=== PATIENT | female | born 1955 | race Caucasian/White ===

== ENCOUNTER 2021-03-04 07:11 | Day surgery (SDC) | payer MEDICARE, SELFPAY ==
--- NOTE | 2021-03-04 07:28 | EKG12_ITS ---
Test Reason : OR Blood Pressure : / mmHG Vent. Rate : 068 BPM Atrial Rate : 068 BPM P-R Int : 168 ms QRS Dur : 090 ms QT Int : 384 ms P-R-T Axes : 029 -05 -11 degrees QTc Int : 408 ms Normal sinus rhythm Inferior infarct , age undetermined Abnormal ECG No previous ECGs available Confirmed by JEANNE MARIN, VANDANA ([id number]), supervisor type disk quality control ABISAI CELESTE ([id number]) on 03/15/2021 10:26:35 AM Referred By: Eliazar Mosley Confirmed By:VANDANA ANGEL MD
[2021-03-04 07:45] VITALS: BP 150/74; PULSE 67; RESP 18; TEMP 36.4; O2SAT 100; BMI 37.3
[2021-03-04] MEDS: Lactated Ringers 1,000 ML 100 ML IV ×2 (07:50→11:00)
[2021-03-04 08:08] LABS: Hemoglobin 10.6 g/dL (12.0-15.0); Mean Corp Hgb Conc 31.2 g/dL (32-36); Mean Corpuscular Hgb 27.2 pg (27.0-32.0); Mean Corpuscular Volume 87.2 fL (81-99); Mean Platelet Vol. 10.7 fl (6.2-12.0); Platelet Count 359 K/mm3 (150-450); RBC Distribution Width CV 13.7 % (11.6-14.6); RBC Distribution Width SD 43.2 fl (35.1-43.9); White Blood Count 8.8 K/mm3 (4.4-11.0)
[2021-03-04 08:28] LABS: Anion Gap 7 (5-15); BUN 39 mg/dL (7-18); BUN/Creat Ratio 30.2 RATIO (10-20); Calcium,Total 9.5 mg/dL (8.5-10.1); Chloride 110 mmol/L (98-107); Creatinine, Serum 1.29 mg/dL (0.55-1.02); EST Glomerular Filtration Rate 44 mL/min (>60); Est Glom Filt Rate - Afr Amer 54 mL/min (>60); Estimated Creatinine Clearance 59.05 ml/min; Glucose 97 mg/dL (74-106); Potassium 4.4 mmol/L (3.5-5.1); Sodium Level 140 mmol/L (136-145)
[2021-03-04 08:29] LABS: International Normalized Ratio 1.1; Prothrombin Time (Protime)PT. 13.4 SECONDS (11.7-14.9)
[2021-03-04 08:30] LABS: Partial Thromboplast Time 32.9 Seconds (24.1-36.2)
[2021-03-04] MEDS: Lidocaine 1% /Epi 1:100 (20ml) 20 ML Vial (08:50)
--- NOTE | 2021-03-04 08:50 | NASAL_PTH ---
PATIENT: MILLER DUTTON LOC: [facility] [place] U#:[id number] AGE/SX: 65/F ROOM: RE03/04/[address]: Dr. Eliazar Mosley MD : 1955 BED: DIS: 03/04/2021 SPEC #: [id number] RECD: 03/04/21 13:56 STATUS: BEHZAD [place] #: [id number] NADIR: 03/04/21 08:[address]: Eliazar Mosley DEPT: SURGICAL PATHOLOGY RECD BY: Etelvina Pete ENTERED: 03/07/21 09:03 SP TYPE: NASAL SPEC OTHR DR: Abi Primary Care Phys Tissues: A - Ethmoid sinus, NOS B - Ethmoid sinus, NOS Procedures: Decalcification bone/plaque Surgery Specimen Level III HEADER OPERATION: Septoplasty, bilateral endoscopic maxillary antrostomies PRE-OP DIAGNOSIS: Chronic maxillary sinusitis, chronic ethmoidal sinusitis, deviated nasal septum TISSUE SUBMITTED: A ? Left sinus contents, B ? Right sinus contents MICROSCOPIC DIAGNOSIS A. Left sinus contents, curettings: Consistent with chronic sinusitis. Fragments of bone with no pathologic change. B. Right sinus contents, curettings: Consistent with chronic sinusitis. Fragments of bone with no pathologic change. AM:ness 03/10/2021 MICROSCOPIC DESCRIPTION Slides are reviewed. GROSS DESCRIPTION A - Received in fixative is one container labeled with the patient's name and designated left sinus contents. The specimen consists of multiple irregular fragments of basilio soft tissue that in aggregate measure 6 x 5 x 0.8 cm. Net Developer Software Engineer C portions are submitted in two cassettes after decalcification. B - Received in fixative is one container labeled with the patient's name and designated right sinus contents. The specimen consists of multiple gritty fragments of basilio soft tissue that in aggregate measure 6 x 6 x 1 cm. Net Developer Software Engineer C portions are submitted in two cassettes. Cassette 1 is submitted after decalcification. / AM:ness 03/07/21 TC:3 CPT: 31475 x2, 20394 x2
[2021-03-04] MEDS: Lidocaine 4% 50 ML Bottle (09:45)
[2021-03-04] MEDS: Oxymetazoline 0.05% 1 SPRAY SPRAY.BTL 15 SPRAY (09:45)
--- NOTE | 2021-03-04 11:12 | PCM.OPRPT ---
Problems Associated Problem List Diagnoses (1) Deviated nasal septum: (2) Chronic maxillary sinusitis: (3) Chronic ethmoidal sinusitis: Report of Operation Date of Procedure: 03/04/21 Pre-Operative Diagnosis: Deviated nasal septum, chronic maxillary and ethmoid sinusitis Post-Operative Diagnosis: Same Surgery/Procedure Performed:: Septoplasty, bilateral endoscopic maxillary antrostomies, total ethmoidectomies Description of Surgical Findings:: Kaila is a 65-year-old female with chronic postnasal drainage, nasal congestion, and exam showing marked nasal septal deviation and CT scan with chronic sinusitis. She had failed appropriate courses of medical therapy to have any significant improvement in the above procedures offered hopes of alleviation of these complaints. She was eager to proceed. The risks, alternatives, potential complications, and benefits were discussed at length and any questions answered to the patient and/or caregiver's satisfaction. Witnessed informed consent was obtained in the office, and the patient and/or caregiver was agreeable to proceed. Procedure went as follows: The patient was identified in the preoperative holding and brought to the operating room, was placed under general anesthesia and intubated. When appropriate anesthesia was obtained, pledgets soaked in a 50-50 mixture of oxymetazoline and 4% topical lidocaine were placed to decongest the nasal mucosa. The nasal septum was then injected beginning on the left side with 1% lidocaine with 100,000 epinephrine for a total of 4 mL. The pledgets were then removed and the left nasal cavity examined. There was noted to be significant nasal septal deviation to the right. Using a 15 blade scalpel, a hemitransfixion incision was then made on the left side and using the Richardson elevator a subperichondrial/periosteal flap was elevated. The septum was then transected at the bony cartilaginous junction and a similar flap raised on the contralateral side. Using a Asmita forceps, the septum was then sharply transected superiorly and the deviated portions removed with a Munira forceps. Any inferior bony spur was then removed with a chisel allowing for midline placement of the nasal septum. The hemitransfixion incision was then closed with interrupted 4-0 chromic gut suture followed by a 4-0 plain quilting suture to reapproximate the mucosal flaps. The navigational head gear was placed and confirmed to be operational in accordance with the legislative aide's directions. Despite several rebooting attempts and calls to support no wrap was immediately available and we are unable to obtain an operational platform for active navigation during the procedure and instead radiographic still images were used for reference. The insertion of the middle turbinate and uncinate process was then injected with 1% lidocaine with 100,000 epinephrine for a total of 2 mL, and a similar injection was then carried on the contralateral side. Upon returning to the left side, the middle turbinate was medialized with a Richardson elevator. This allowed examination of the maxillary sinus ostia which was then probed with a double ball seeker. The uncinate process was then outfractured with a J curette and transected with a backbiting forceps. This was then removed with the microdebrider creating a wide maxillary antrostomy. The maxillary sinus was found to be completely filled with purulent material which was aspirated and irrigated until clear. The ethmoid bulla was then entered and a total ethmoidectomy was then carried out working posteriorly to anterior. Any polyps, scar, and mucous secretions were removed. The middle turbinate was noted be significantly large and obstructing the nasal passage and ostiomeatal complex and this was then reduced by two thirds leaving the superior remnant as an anatomical landmark. The posterior vascular supply was then cauterized with suction electrocautery. Pledgets soaked in oxymetazoline were then placed for hemostasis and attention turned to the contralateral side. Similar procedure and findings were then carried out. Floseal hemostatic agent was then applied. An NG tube was then placed to decompress the stomach and the patient returned to anesthesia, revived and extubated having tolerated the procedure well. Surgeon: Eliazar Mosley Type of Anesthesia: General Specimen's removed: septal and sinus contents Drains: none Estimated Blood Loss (mL): 200 mL Fluids Replaced: 1100 mL Grafts/Implants Used: none Complications none Admit VTE Documentation VTE Present on Admission: No VTE Mechan Device Prophylaxis: SCD's VTE Pharm Prophylaxis ordered?: No
--- NOTE | 2021-03-04 11:21 | PCM.DC ---
Discharge Instructions Diet Discharge Diet: No restrictions Activity Discharge Activity: Return to Normal Activity Dressing / Incision Call your doctor if your incision/area has: Sudden Increased Bleeding and Foul Smelling Discharge Call your doctor if you observe: Fever of 101 or Higher and Uncontrolled pain Follow Up Care Please Follow Up With: Eliazar Mosley MD When: 1 week Test Results: Test results from this visit will be discussed in further detail at your follow-up appointment, if applicable. Discharge Plan Admission Primary Reason for Your Visit: deviated nasal septum, chronic sinusitis Attending Provider: Eliazar Mosley Primary Care Provider: Care Physician,No Primary Discharge Orders/Prescriptions Prescriptions: New acetaminophen 500 mg Tablet 500 mg PO Q4H PRN PRN (Reason: Pain Score 1-5/10) Qty: 0 RF: 0 hydrocodone-acetaminophen 5-325 mg Tablet 1 tab PO Q4H PRN PRN (Reason: severe pain) 5 Days Qty: 10 RF: 0 ibuprofen 200 mg Tablet 400 mg PO Q6H PRN PRN (Reason: Pain Score 4-10/10) Qty: 0 RF: 0 Continued citalopram [Celexa] 40 mg Tablet 40 mg PO 1500 RF: 0 levothyroxine [Synthroid] 88 mcg Tablet 88 mcg PO DAILY RF: 0 lorazepam [Ativan] 0.5 mg Tablet 0.5 mg PO TID RF: 0 gemfibrozil [Lopid] 600 mg Tablet 600 mg PO BID RF: 0 pravastatin 20 mg Tablet 20 mg PO QHS RF: 0 hydrochlorothiazide 25 mg Tablet 25 mg PO 1500 RF: 0 diclofenac sodium 50 mg Tablet,Delayed Release (Dr/Ec) 50 mg PO BID RF: 0 atenolol 50 mg Tablet 50 mg PO DAILY RF: 0 esomeprazole magnesium [Nexium] 20 mg Capsule,Delayed Release(Dr/Ec) 20 mg PO 1500 RF: 0 ferrous sulfate 27 mg iron Tablet 27 mg PO BID RF: 0 albuterol sulfate [ProAir HFA] 90 mcg/actuation Hfa Aerosol Inhaler 1 inh INHALATION Q6H PRN (Reason: SOB) RF: 0 Referrals / Follow Up: Care Physician,No Primary [Primary Care Provider] - Disposition Disposition (needs filled in before D/C Order can be placed): Home, Self Care
[2021-03-04 11:45] VITALS: BP 110/60; BP 150/74; PULSE 78; RESP 14; TEMP 35.9; O2SAT 96
[2021-03-04 12:01] VITALS: BP 130/63; BP 150/74; PULSE 69; RESP 18; O2SAT 97
[2021-03-04 12:15] VITALS: BP 132/66; BP 150/74; PULSE 78; RESP 18; O2SAT 99
[2021-03-04] MEDS: HYDROcodone Bitartrate/Apap 5/325 Tablet PO (12:28)
[2021-03-04 12:31] VITALS: BP 114/69; BP 150/74; PULSE 74; RESP 16; TEMP 35.9; O2SAT 95
[2021-03-04 13:22] VITALS: BP 111/49; BP 150/74; PULSE 79; RESP 16; TEMP 36.1; O2SAT 95
== END 2021-03-04 13:29 | disposition home or self-care (01) ==
LOC: SDC 07:15 → AC 07:17
PROVIDERS: Anesthesiology; Referring Provider Otolaryngology; Visit Provider Otolaryngology
PROC: (CPT 30520; principal; 2021-03-04 08:20)
DX: J34.2 Deviated nasal septum (principal); J32.0 Chronic maxillary sinusitis; J32.2 Chronic ethmoidal sinusitis; K21.9 Gastro-esophageal reflux disease without esophagitis; M19.90 Unspecified osteoarthritis, unspecified site; J45.909 Unspecified asthma, uncomplicated; E78.5 Hyperlipidemia, unspecified; I10 Essential (primary) hypertension; E07.9 Disorder of thyroid, unspecified; F32.9 Major depressive disorder, single episode, unspecified; Z79.899 Other long term (current) drug therapy; Z79.890 Hormone replacement therapy; R06.02 Shortness of breath; R25.2 Cramp and spasm; Z86.79 Personal history of other diseases of the circulatory system
CPT/HCPCS: 30520; 31255; 31256; 80048; 84443; 85027; 85610; 85730; 87426; 88304; 88305; 88311; 93005; J7120; J2405

== ENCOUNTER 2021-09-01 10:32 | Outpatient (CLI) | payer MEDICARE, SELFPAY | END 2021-09-01 23:59 | disposition home or self-care (01) | LOC: LABSPEC 09-02 10:34 | PROVIDERS: Visit Provider Otolaryngology | DX: J32.0 Chronic maxillary sinusitis (principal) | CPT/HCPCS: 87070; 87077; 87186; 87205 ==